=== PATIENT | female | born 1990 | race Caucasian/White ===

== ENCOUNTER 2017-06-11 13:01 | Emergency (ER) | payer BC ==
[2017-06-11] MEDS ORDERED: BUPIVACAIN-EPI 0.5%-1:200,000 30 ML VIAL SQ STA (13:54)
--- NOTE | 2017-06-11 13:54 | ED ---
General Adult HPI - General Chief complaint: Skin/Abscess/Foreign Body Stated complaint: painful lumps in armpits Time Seen by Provider: 06/11/17 13:33 Source: patient, RN notes reviewed Mode of arrival: ambulatory Limitations: no limitations - History of Present Illness Initial comments: Patient 27-year-old female who presents emergency room today with chief complaint of infection to the right axilla. Does admit that started approximately 10 days ago was started on Augmentin which she finished yesterday. States that she would benefit her family doctor was referred to a surgeon who she was supposed states today but her appointment was canceled due to a family emergency. She states she was advised coming here in the emergency room. She states that she has been using ibuprofen and Tylenol for pain. States that she does have an appointment with surgeon tomorrow but the pain is too great and just came here. She denies any drainage or discharge. She does admit that the sizes got worse. She denies any other complaints or symptoms at this time. Patient denies any recent fever, chills, shortness of breath, chest pain, back pain, abdominal pain, nausea or vomiting, numbness or tingling, dysuria or hematuria, constipation or diarrhea, headaches or visual changes, or any other complaints. - Related Data Home Medications Medication Instructions Recorded Confirmed Albuterol Sulfate [Ventolin HFA] 18 gm INHALATION PRN 03/11/15 03/11/15 Budesonide [Pulmicort Flexhaler] 180 mcg INHALATION DAILY 03/11/15 03/11/15 Montelukast [Singulair] 10 mg PO DAILY 03/11/15 03/11/15 Butalb/Acetaminophen/Caffeine 1 tab PO Q6H PRN 06/11/17 06/11/17 [Fioricet 50-325-40] Fluticasone Nasal [place] [Flonase 2 spr EA NOSTRIL DAILY 06/11/17 06/11/17 Nasal [place]] Multivitamins, Thera [Multivitamin 1 tab PO DAILY 06/11/17 06/11/17 (formulary)] Norethindrone-E.estradiol-Iron 1 tab PO DAILY 06/11/17 06/11/17 [Microgestin Fe 1-20 Tablet] Previous Rx's Medication Instructions Recorded Clindamycin HCl [Cleocin] 300 mg PO Q6HR 10 Days 06/11/17 Hydrocodone/Acetaminophen [[place] 1 each PO Q6HR PRN #10 tab 06/11/17 5-325] Allergies Allergy/AdvReac Type Severity Reaction Status Date / Time sulfamethoxazole Allergy Itching Verified 06/11/17 13:54 [From Bactrim] trimethoprim [From Bactrim] Allergy Itching Verified 06/11/17 13:54 metronidazole [From Flagyl] AdvReac Abdominal Verified 06/11/17 13:54 Pain Review of Systems ROS Statement: Those systems with pertinent positive or pertinent negative responses have been documented in the HPI. ROS Other: All systems not noted in ROS Statement are negative. Past Medical History Past Medical History: Asthma History of Any Multi-Drug Resistant Organisms: None Reported Past Surgical History: Adenoidectomy, Tonsillectomy Additional Past Surgical History / Comment(s): Patient has had sinus surgery. Past Anesthesia/Blood Transfusion Reactions: No Reported Reaction Past Psychological History: No Psychological Hx Reported Smoking Status: Never smoker Past Alcohol Use History: None Reported Past Drug Use History: None Reported - Past Family History Mother Family Medical History: Thyroid Disorder Father Family Medical History: No Reported History General Exam - General Exam Comments Initial Comments: General: The patient is awake and alert, in no distress, and does not appear acutely ill. Eye: Pupils are equal, round and reactive to light, extra-ocular movements are intact. No nystagmus. There is normal conjunctiva bilaterally. No signs of icterus. Ears, nose, mouth and throat: There are moist mucous membranes and no oral lesions. Neck: The neck is supple, there is no tenderness or JVD. Cardiovascular: There is a regular rate and rhythm. No murmur, rub or gallop is appreciated. Respiratory: Lungs are clear to auscultation, respirations are non-labored, breath sounds are equal. No wheezes, stridor, rales, or rhonchi. Musculoskeletal: Normal ROM, no tenderness. Strength 5/5. Sensation intact. Pulses equal bilaterally 2+. Neurological: A&O x 3. CN II-XII intact, There are no obvious motor or sensory deficits. Coordination appears grossly intact. Speech is normal. Skin: Abscess formation [measures approximately 2-3 cm across portion. Psychiatric: Cooperative, appropriate mood & affect, normal judgment. Limitations: no limitations Course Vital Signs 06/11/17 13:24 Temperature 100.5 F H Pulse Rate 85 Respiratory 18 Rate Blood Pressure 159/77 O2 Sat by Pulse 100 Oximetry Procedures - Procedures Initial comment: Procedure: Incision and drainage The skin overlying the abscess was prepped with Betadine, and anesthetized with 1% lidocaine without epinephrine. A #11 scalpel was then used to incise the abscess. Moderate amount purulent material was then extracted from the lesion. Wound culture obtained. Gauze dressing placed on top, The patient tolerated the procedure well. Disposition Clinical Impression: Abscess Disposition: HOME SELF-CARE Condition: Good Instructions: Abscess (ED) Additional Instructions: Please continue warm compresses to affected areas discussed. Please follow-up surgeon. Please use medications as prescribed and return to emergency room for new concerns. Prescriptions: Clindamycin HCl [Cleocin] 300 mg PO Q6HR 10 Days Hydrocodone/Acetaminophen [[place] 5-325] 1 each PO Q6HR PRN #10 tab PRN Reason: Pain Referrals: Mike Villalpando MD [Primary Care Provider] - 1-2 days Time of Disposition: 14:19
[2017-06-11] MEDS ORDERED: HYDROcodone/APAP 5-325MG 1 EACH TAB PO STA (14:17)
[2017-06-11 14:37] VITALS: BP 120/73; PULSE 72; RESP 16; TEMP 99.4
== END 2017-06-11 14:49 | disposition home or self-care (01) ==
LOC: EC 13:01
DX: L02.411 Cutaneous abscess of right axilla (principal); J45.909 Unspecified asthma, uncomplicated; Z79.3 Long term (current) use of hormonal contraceptives; Z79.51 Long term (current) use of inhaled steroids; Z79.899 Other long term (current) drug therapy; Z88.1 Allergy status to other antibiotic agents
CPT/HCPCS: 10060; 87070; 87077; 87186; 87205; 99283

== ENCOUNTER 2018-02-08 08:45 | Emergency (ER) | payer BC ==
[2018-02-08 08:53] VITALS: TEMP 98.4
--- NOTE | 2018-02-08 09:18 | ED ---
Lower Extremity Injury HPI - General Chief Complaint: Extremity Injury, Lower Stated Complaint: lt ankle injury Time Seen by Provider: 02/08/18 08:55 Source: patient, RN notes reviewed, old records reviewed Mode of arrival: wheelchair Limitations: no limitations - History of Present Illness Initial Comments: 27-year-old female presents emergency Department chief complaint of left ankle and foot pain. She reports that last night she was out with her friends. She reports she is going down the stairs and rolled her ankle. Patient states that she woke up this morning in her ankle is very swollen. She reports that it is painful to bear weight on her foot. Denies any previous left ankle and foot injuries. She did injure her right ankle and phalanges a teenager. She denies any numbness or tingling to the foot.Patient denies any recent fever, chills, shortness of breath, chest pain, back pain, abdominal pain, nausea vomiting, numbness or tingling, dysuria or hematuria, constipation or diarrhea, headaches or visual changes, or any other current symptoms - Related Data Home Medications Medication Instructions Recorded Confirmed Albuterol Sulfate [Ventolin HFA] 2 puff INHALATION RT-Q4H PRN 03/11/15 06/11/17 Budesonide [Pulmicort Flexhaler] 2 puff INHALATION RT-DAILY 03/11/15 06/11/17 Montelukast [Singulair] 10 mg PO HS 03/11/15 06/11/17 Butalb/Acetaminophen/Caffeine 1 tab PO Q6H PRN 06/11/17 06/11/17 [Fioricet 50-325-40] Fluticasone Nasal [place] [Flonase 2 spr EA NOSTRIL DAILY 06/11/17 06/11/17 Nasal [place]] Multivitamins, Thera [Multivitamin 1 tab PO DAILY 06/11/17 06/11/17 (formulary)] Norethindrone-E.estradiol-Iron 1 tab PO DAILY 06/11/17 06/11/17 [Microgestin Fe 1-20 Tablet] Previous Rx's Medication Instructions Recorded Clindamycin HCl [Cleocin] 300 mg PO Q6HR 10 Days cap 06/11/17 Hydrocodone/Acetaminophen [[place] 1 each PO Q6HR PRN #10 tab 06/11/17 5-325] Ibuprofen [Motrin] 600 mg PO Q8HR PRN #20 tab 02/08/18 Allergies Allergy/AdvReac Type Severity Reaction Status Date / Time sulfamethoxazole Allergy Itching Verified 02/08/18 08:53 [From Bactrim] trimethoprim [From Bactrim] Allergy Itching Verified 02/08/18 08:53 metronidazole [From Flagyl] AdvReac Abdominal Verified 02/08/18 08:53 Pain Review of Systems ROS Statement: Those systems with pertinent positive or pertinent negative responses have been documented in the HPI. ROS Other: All systems not noted in ROS Statement are negative. Past Medical History Past Medical History: Asthma History of Any Multi-Drug Resistant Organisms: MRSA Date of last positivie culture/infection: 06/11/17 MDRO Source:: Right Axilla Past Surgical History: Adenoidectomy, Tonsillectomy Additional Past Surgical History / Comment(s): Patient has had sinus surgery. Past Anesthesia/Blood Transfusion Reactions: No Reported Reaction Past Psychological History: No Psychological Hx Reported Smoking Status: Never smoker Past Alcohol Use History: None Reported Past Drug Use History: None Reported - Past Family History Mother Family Medical History: Thyroid Disorder Father Family Medical History: No Reported History General Exam - General Exam Comments Initial Comments: Set 27-year-old female. Alert. No distress. Limitations: no limitations General appearance: alert, in no apparent distress Head exam: Present: atraumatic, normocephalic, normal inspection Eye exam: Present: normal appearance, PERRL, EOMI. Absent: scleral icterus, conjunctival injection, periorbital swelling ENT exam: Present: normal exam, mucous membranes moist Neck exam: Present: normal inspection. Absent: tenderness, meningismus, lymphadenopathy Respiratory exam: Present: normal lung sounds bilaterally. Absent: respiratory distress, wheezes, rales, rhonchi, stridor Cardiovascular Exam: Present: regular rate, normal rhythm, normal heart sounds. Absent: systolic murmur, diastolic murmur, rubs, gallop, clicks GI/Abdominal exam: Present: soft, normal bowel sounds. Absent: distended, tenderness, guarding, rebound, rigid Extremities exam: Present: normal inspection, full ROM, normal capillary refill. Absent: tenderness, pedal edema, joint swelling, calf tenderness Left Lower Leg exam: Present: normal inspection, full ROM Ankle exam: Present: tenderness, swelling (lateral malleolus). Absent: normal inspection, full ROM Foot/Toe exam: Present: tenderness, swelling (over fourth and fifth metatarsal) . Absent: normal inspection Neurovascular tendon exam: Present: no vascular compromise Gait: observed and limited by pain Back exam: Present: normal inspection Neurological exam: Present: alert, oriented X3, CN II-XII intact Psychiatric exam: Present: normal affect, normal mood Skin exam: Present: warm, dry, intact, normal color. Absent: rash Course Vital Signs 02/08/18 02/08/18 08:52 10:37 Temperature 98.4 F 98.4 F Pulse Rate 86 75 Respiratory 16 18 Rate Blood Pressure 129/86 133/84 O2 Sat by Pulse 98 100 Oximetry Procedures - Orthopedic Splinting/Casting Injury #1 Side: left Lower Extremity Injury Location: ankle Lower Extremity Immobilizer: AirCast, Nawaf wrap Medical Decision Making - Medical Decision Making 27-year-old female presents emergency Department chief complaint of left ankle and foot pain. She reports that last night she was out with her friends. She reports she is going down the stairs and rolled her ankle. Patient states that she woke up this morning in her ankle is very swollen. She reports that it is painful to bear weight on her foot. Denies any previous left ankle and foot injuries. She has tenderness and swelling over lateral malleoulus and 5th metatarsal. Normal pulse and senasation distally. She has no erythema, some bruising noted. Xray was reviewed and negative for fracture in foot or ankle. Given NAWAF wrap and Aircast. Disucssed. RICE procedures, and antiinflammatory. She requested pain medication, givne Tylenol 3 starter pack. Will have pt follow up with ortho if symptoms persist after conservative measures. - Radiology Data Radiology results: report reviewed Xray foot and ankle are negative for acute fracutre. Disposition Clinical Impression: Left ankle sprain Disposition: HOME SELF-CARE Condition: Good Instructions: Ankle Sprain (ED) Additional Instructions: Patient is to rest, ice, and elevate extremity. Follow-up with orthopedics. Return to the emergency department if any alarming signs or symptoms occur. Ambulate with crutches. Take Motrin Tylenol for pain. Prescriptions: Ibuprofen [Motrin] 600 mg PO Q8HR PRN #20 tab PRN Reason: Pain Is patient prescribed a controlled substance at d/c from ED?: No If prescribed controlled substance>3 days was MAPS reviewed?: No When asked, does pt state using other controlled substances?: No Referrals: Mike Villalpando MD [Primary Care Provider] - 1-2 days Tri Mcclure DO [Doctor of Osteopathic Medicine] - 1-2 days Time of Disposition: 10:16
[2018-02-08] MEDS ORDERED: ACET/COD 300 MG/30 MG STARTER PACK 6 TAB BTL PO STA (09:31)
--- NOTE | 2018-02-08 09:34 | XR ---
EXAMINATION TYPE: XR ankle complete LT, XR foot complete LT DATE OF EXAM: 02/08/2018 CLINICAL HISTORY: Lateral side pain TECHNIQUE: Frontal, lateral and oblique images of the left ankle and foot are obtained. COMPARISON: None. FINDINGS: There is no acute fracture/dislocation evident in the left ankle. The ankle mortise appea rs within normal limits. Moderate size inferior calcaneal spur is incidentally noted. The overlying soft tissue appears unremarkable. There is no acute fracture or dislocation evident in the left foot. The joint spaces in the left pushpa t are preserved. Overlying soft tissue is unremarkable. IMPRESSION: There is no acute fracture or dislocation in the left ankle or foot. Moderate size infer ior calcaneal spur noted.
[2018-02-08 10:37] VITALS: BP 133/84; PULSE 75; RESP 18
== END 2018-02-08 10:40 | disposition home or self-care (01) ==
LOC: EC 08:45
DX: S93.402A Sprain of unspecified ligament of left ankle, initial encounter (principal); J45.909 Unspecified asthma, uncomplicated; Z86.14 Personal history of Methicillin resistant Staphylococcus aureus infection; Z79.51 Long term (current) use of inhaled steroids; Z79.899 Other long term (current) drug therapy; Z79.3 Long term (current) use of hormonal contraceptives; Z88.2 Allergy status to sulfonamides; Z88.1 Allergy status to other antibiotic agents; X50.1XXA Overexertion from prolonged static or awkward postures, initial encounter; Y93.89 Activity, other specified
CPT/HCPCS: 99284

== ENCOUNTER → 2018-04-11 | Outpatient (CLI) | payer BC | END | disposition home or self-care (01) | LOC: LABWHC1 15:44 | PROVIDERS: ATTEND Internal Medicine Critical Care Medicine | DX: J45.909 Unspecified asthma, uncomplicated (principal) | CPT/HCPCS: 36415; 82785; 85008 ==

== ENCOUNTER → 2018-08-08 | Outpatient (CLI) | payer BC ==
--- NOTE | 2018-08-08 14:00 | CT ---
EXAMINATION TYPE: CT sinus wo con DATE OF EXAM: 08/08/2018 COMPARISON: None HISTORY: Sinus infections and allergies x [address] DLP: [address] of the paranasal sinuses was performed in the axial and coronal planes. Bone and soft tissue settings are submitted. The paranasal sinuses demonstrate normal aeration and development. The paranasal sinuses are free of mucosal thickening or air fluid level. Bilateral medial maxillary antrectomy and partial ethmoidectomy noted. The osteal meatal units are patent bilaterally. The nasal septum is midline. No bony destructive changes are seen within the field of view. IMPRESSION: Unremarkable unenhanced CT of the paranasal sinuses. Stab changes noted.
== END | disposition home or self-care (01) ==
LOC: RADCTMAIN 13:15
PROVIDERS: ATTEND Otolaryngology
DX: J32.9 Chronic sinusitis, unspecified (principal)
CPT/HCPCS: 70486